=== PATIENT | male | born 1990 | race Caucasian/White ===

== ENCOUNTER 2016-07-16 12:27 | Emergency (ER) | payer OTHER ==
[~2016-07-16] VITALS: Ht 177.8 cm; Wt 88.6 kg
[2016-07-16 12:31] VITALS: BP 128/83; PULSE 77; RESP 16; O2SAT 94
--- NOTE | 2016-07-16 12:37 | ED.REPORT ---
HPI-Eye Problem Date of Service July 16, 2016 ED Provider: Francisco Javier is an otherwise healthy 25-year-old male presenting with chief complaint of red and dry eyes. Patient states he woke up 2 days ago with his left eye red. The next morning he woke up with both eyes red. Complains of a sensation of dryness "like someone is holding a hairdryer in my eyes." Denies purulent discharge, crusting, use of contact lenses, chemical exposures, trauma , history of allergies, sick contacts, congestion, rhinorrhea, sore throat, sneezing, headache. Nursing Notes Stated Complaint: EYEBALL DRY/PINK Chief Complaint: Eye Nursing Notes Reviewed: Yes Allergies: Coded Allergies: No Known Allergies (Unverified , 07/16/16) General Time Seen by MD: 12:37 Chief Complaint Redness (bilateral) Past Medical History Past Medical History Notes: Denies Review of Systems Review of Systems Note: Negative unless stated otherwise in history of present illness Physical Exam General: Well appearing, well developed, well nourished, no acute distress. Head: Atraumatic, normocephalic. Eyes: Bilateral conjunctival injection, watery discharge. Vision grossly intact. PERRL, EOMI. Patient can open his eyes easily. ENT: Voice clear, hearing grossly intact. Respiratory: No respiratory distress, no increased work of breathing. Speaks in complete sentences. Skin: Warm and dry. Neurological: Grossly nonfocal. Psychological: alert and oriented. Speech appropriate, linear and logical. Behavior appropriate. Initial Vital Signs Vital Signs (First) Date Time Temp Pulse Resp B/P Pulse Ox O2 Delivery O2 Flow Rate FiO2 07/16/16 12:31 36.3 77 16 128/83 94 Room Air Initial VS: Vital signs normal Re-Eval/Medical Decision Med Decision/Clinical Course I discussed this case with Dr. mesa Otherwise healthy 25-year-old male presents with chief complaint of red eyes, first noticed yesterday in the left eye and progressing to bilateral this morning. Negative purulence, crusting, use of contact lenses, chemical exposures, trauma. Physical examination reveals injected conjunctiva bilaterally with watery discharge. I believe this is a viral conjunctivitis and was concerned about bacterial conjunctivitis, glaucoma, infectious keratitis. Advise handwashing, [id number] eyedrops, ointment, primary care follow-up, emergency return precautions, patient verbalizes understanding of and consent to the plan Discharge & Departure Primary Impression: Conjunctivitis Conjunctivitis type: acute Acute conjunctivitis type: viral Laterality: bilateral Qualified Code: B30.9 - Viral conjunctivitis, unspecified Disposition: Home Discharge Condition All VS Reviewed: Yes Condition: Stable Patient Instructions: Conjunctivitis (ED) Additional Instructions: Evaluation for red eyes in the emergency department includes history and physical examination which are both reassuring that this is unlikely to be caused by a dangerous condition. I believe this is a viral conjunctivitis ( Pinkeye). This is extremely contagious. It will be important that you wash your hands, not touch your eyes and have family members wash their hands consistently. The treatment is symptomatic. Continue using your [id number] eyedrops. If you need more relief, I recommend Lacri-Lube ophthalmic ointment which is also available [id number]. Follow-up with your primary care provider or return to emergency Department if you notice the appearance of pus, increasing pain, worsening vision Referrals: [facility] Provider for APC: Timothy Mesa MD Attending Statement Attending attestation: I saw this patient in conjunction with Keith Jarrell PA-C. I agree with the workup, evaluation, treatment and disposition. Timothy Nicholas MD, MD July 16, 2016 12:37 Keith Jarrell PA-C July 16, 2016 12:55
== END 2016-07-16 13:00 | disposition home or self-care (01) ==
LOC: SED 12:27
DX: B30.9 Viral conjunctivitis, unspecified (principal)